=== PATIENT | male | born 1960 | race American Indian/Alaskan Native ===

== ENCOUNTER 2022-01-22 09:34 | Emergency (ER) | payer SELFPAY ==
[2022-01-22 10:04] VITALS: BP 147/91
[2022-01-22] MEDS ORDERED: dexAMETHasone 4 MG/ML VIAL IM ONE (10:33)
--- NOTE | 2022-01-22 10:34 | Emergency Department Report ---
ED Back Pain/Injury HPI - General Chief Complaint: Extremity Problem,Nontraumatic Stated Complaint: LEG PAIN (RT) Time Seen by Provider: 01/22/22 10:28 Source: patient Limitations: No Limitations - History of Present Illness Initial Comments: Patient is a pleasant 61-year-old male that comes to the emergency room with low back pain radiating into his right thigh and leg. He states that he has had this off and on for years due to his prior back injury. He is new to the area and does not have an orthopedic doctor. He does live in [facility]. He is uninsured. Patient has no signs or symptoms of cauda equina. The pain does not wake him from sleep at night. He has no fever. Patient has no dysuria or difficulty voiding. He has no hematuria. No fever or chills. He is neurovascularly intact. Patient ambulatory to the ER. MD Complaint: back pain -: Gradual Similar Symptoms Previously: Yes Place: home Radiation: right leg Severity: mild Consistency: intermittent Improves With: immobilization Worsens With: movement Associated Symptoms: denies other symptoms. denies: confusion, weakness, chest pain, difficulty walking, cough, difficulty urinating, diaphoresis, incontinence, fever/chills, constipation, headaches, abdominal pain, loss of appetite, malaise, nausea/vomiting, rash, seizure, shortness of breath, syncope - Related Data Previous Rx's Medication Instructions Recorded Last Taken Type Cyclobenzaprine [Flexeril] 10 mg PO TID PRN #10 tablet 01/22/22 Unknown Rx Ibuprofen [Motrin] 800 mg PO Q8HR PRN #30 tablet 01/22/22 Unknown Rx Allergies Allergy/AdvReac Type Severity Reaction Status Date / Time No Known Allergies Allergy Unverified 01/22/22 10:01 ED Review of Systems ROS: Stated complaint: LEG PAIN (RT) Other details as noted in HPI Comment: All other systems reviewed and negative ED Past Medical Hx - Past Medical History Medical history: hypertension Surgical history: no surgical history Psychiatric history: no pertinent history Family history: no significant family history - Social History Alcohol use: rarely Drug use: none ED Back Pain Physical Exam - Exam General: Vital signs noted. No distress. Alert and acting appropriately. Back/Abdomen: Yes Straight Leg Raise Pain (r), No Abdominal Tenderness, No Perithoracic Tenderness, No Perilumbar Tenderness, No Sacroiliac Tenderness, No Flank Tenderness Neuro: Yes Normal Sensation, Yes Normal DTR's, Yes Normal Gait, No Motor Weakness ED Course Vital Signs 01/22/22 10:02 Temperature 98.1 F Pulse Rate 59 L Respiratory 18 Rate Blood Pressure 147/91 O2 Sat by Pulse 99 Oximetry ED Medical Decision Making - Medical Decision Making Vital Signs 01/22/22 10:02 Temperature 98.1 F Pulse Rate 59 L Respiratory 18 Rate Blood Pressure 147/91 O2 Sat by Pulse 99 Oximetry Patient has positive right straight leg raise on exam. He has been medicated with Decadron IM in the ER. Patient educated on body mechanics for lifting. Patient being discharged home with discharge plan of care including medications, follow-up, activity and diet. He verbalizes understanding - Differential Diagnosis Sciatica Critical care attestation.: If time is entered above; I have spent that time in minutes in the direct care of this critically ill patient, excluding procedure time. ED Disposition Clinical Impression: Sciatica Qualifiers: Laterality: right Qualified Code(s): M54.31 - Sciatica, right side Disposition: 01 HOME / SELF CARE / HOMELESS Is pt being admited?: No Does the pt Need Aspirin: No Condition: Stable Instructions: Radicular Pain, Sciatica Additional Instructions: warm baths good body mechanics meds as ordered FOLLOW UP WITH [facility] CALL MAIN NUMBER AND ASK FOR APPOINTMENT WITH [facility] MD WHO TREATS BACK PAIN TELL THEM YOU LIVE IN [facility] OR YOU CAN GO TO THE ER AND THEY WILL SEE YOU IN THE WALK IN CLINIC AND GET YOU AN APPNT WITH [facility] Prescriptions: Cyclobenzaprine [Flexeril] 10 mg PO TID PRN #10 tablet PRN Reason: Muscle Spasm Ibuprofen [Motrin] 800 mg PO Q8HR PRN #30 tablet PRN Reason: Pain, Moderate (4-6) Forms: Work/School Release Form(ED) Time of Disposition: 10:32
== END 2022-01-22 14:49 | disposition home or self-care (01) ==
LOC: ED 09:34
DX: M54.30 Sciatica, unspecified side (principal)
CPT/HCPCS: 96372; 99282; J1100